=== PATIENT | male | born 2000 | race Two or more races ===

== ENCOUNTER 2025-06-16 14:24 | Emergency (ER) | payer OTHER ==
[2025-06-16] MEDS: Diphtheria,Pertussis(Acell),Tetanus Vaccine 0.5 ML Syringe IM ONE (14:53)
== END 2025-06-16 15:24 | disposition home or self-care (01) ==
LOC: MW.ED 14:24
DX: S61.411A Laceration without foreign body of right hand, initial encounter (principal); Z23 Encounter for immunization; W26.8XXA Contact with other sharp object(s), not elsewhere classified, initial encounter; Y93.89 Activity, other specified
CPT/HCPCS: 12001; 90471; 90715; 99282; J2003; 99283